=== PATIENT | female | born 1950 | race Caucasian/White ===

== ENCOUNTER 2016-11-28 18:41 | Emergency (ER) | payer MEDICARE, MEDICAID ==
[~2016-11-28] VITALS: Ht 157.5 cm; Wt 63.5 kg
[2016-11-28 18:45] VITALS: BP 128/85; PULSE 97; RESP 19; TEMP 97.2; O2SAT 97
--- NOTE | 2016-11-28 19:45 | NUR ---
Placed in room 5 . Placed on electronic device monitor, blood pressure machine and pulse oximeter. To gown for exam. Side rails up.
--- NOTE | 2016-11-28 19:50 | NUR ---
Pt presents to ED with c/o R ankle pain, stated she was hiking and slipped on rock. Pedal pulse 2+, pain 6/10, no bruise or skin opening noted. A&Ox4, denies SOB or chestpain, denies N/V/D. Will continue to monitor
--- NOTE | 2016-11-28 20:00 | NUR ---
HOSEA Rai at bedside examining pt
[2016-11-28] MEDS ORDERED: KETOROLAC TROMETHAMINE 60 MG/2 ML VIAL IM ONE (20:30)
[2016-11-28 21:10] VITALS: BP 120/76; PULSE 88; RESP 18; TEMP 97.2; O2SAT 98
--- NOTE | 2016-11-28 21:10 | NUR ---
Patient given written and verbal discharge instructions and verbalizes understanding. ER Order Takers Supervisor eri discussed with patient the results and treatment provided. Patient in stable condition. ID arm band removed. Rx of mobic given. Patient educated on pain management and to follow up with PMD. Pain Scale 0/10. Opportunity for questions provided and answered.
== END 2016-11-28 21:10 | disposition home or self-care (01) ==
LOC: SED 18:41
DX: S93.491A Sprain of other ligament of right ankle, initial encounter (principal); E11.9 Type 2 diabetes mellitus without complications; I10 Essential (primary) hypertension; X50.1XXA Overexertion from prolonged static or awkward postures, initial encounter; Y93.31 Activity, mountain climbing, rock climbing and wall climbing; Y92.832 Beach as the place of occurrence of the external cause; Y99.8 Other external cause status
CPT/HCPCS: 29515; 73630; 99284; J1885; 96372

== ENCOUNTER 2021-03-16 10:28 | Emergency (ER) | payer OTHER, MEDICAID ==
[~2021-03-16] VITALS: Ht 157.5 cm; Wt 68.0 kg
[2021-03-16 10:28] VITALS: BP_SYST 175
[2021-03-16] MEDS ORDERED: DICL100G33 TP (11:29)
[2021-03-16 11:47] VITALS: BP_SYST 175
== END 2021-03-16 11:47 | disposition home or self-care (01) ==
LOC: SED 10:28
DX: M25.511 Pain in right shoulder (principal)
CPT/HCPCS: 73030; 99283

== ENCOUNTER 2022-04-12 11:57 | Emergency (ER) | payer OTHER, MEDICAID ==
[~2022-04-12] VITALS: Ht 157.5 cm; Wt 62.1 kg
[~2022-04-12 11:57] MED LIST: DICL100G33 TP
--- NOTE | 2022-04-12 12:15 | NUR ---
Pt presents to the ER BI[facility] family. CC SOB. PT is using accessory muscles for labored breathing. Pt is aaox4, cap refill <3sec. Pt is anxious and reassured by family at bedside.
[2022-04-12 12:17] VITALS: BP_SYST 143
[2022-04-12] MEDS ORDERED: cefTRIAXone 1 GM IVPB PREMIX 50 ML IV ONE (12:30)
--- NOTE | 2022-04-12 12:32 | NUR ---
ER at bedside examining patient.
--- NOTE | 2022-04-12 12:32 | NUR ---
Patient to ER bed 8 to gown for evaluation. Side rails up. Report given to Brenda WHITEHEAD.
[2022-04-12 12:55] LABS: BASOPHILS % (AUTO) 0.6 % (0.0-2.0); EOSINOPHILS # (AUTO) 0.1 K/uL (0.0-0.4); EOSINOPHILS % (AUTO) 1.7 % (0.0-4.0); HEMATOCRIT 30.1 % (36-48); HEMOGLOBIN 10.4 g/dL (12.0-16.0); LYMPHOCYTES # (AUTO) 1.3 K/uL (1.0-5.5); LYMPHOCYTES % (AUTO) 17.3 % (20.5-51.5); MEAN CORPUSCULAR HEMOGLOBIN 28 pg (27-31); MEAN CORPUSCULAR HGB CONC 35 % (32-36); MEAN CORPUSCULAR VOLUME 81 fL (79.0-98.0); MONOCYTES # (AUTO) 0.1 K/uL (0.0-1.0); NEUTROPHILS # (AUTO) 6.1 K/uL (1.8-7.7); NEUTROPHILS % (AUTO) 79.4 % (40.0-70.0); PLATELET COUNT (AUTO) 135 K/uL (130-430); WHITE BLOOD COUNT (AUTO) 7.7 K/uL (4.8-10.8)
[2022-04-12 13:29] LABS: ANION GAP 10 (5-15); CALCIUM 8.5 mg/dL (8.4-11.0); CHLORIDE 103 mmol/L (98-107); CREATININE 1.18 mg/dL (0.55-1.30); GLUCOSE 146 mg/dL (70-99); POTASSIUM 3.3 mmol/L (3.5-5.1); SODIUM SERUM 138 mmol/L (136-145); UREA NITROGEN, BLOOD 27 mg/dL (8-21)
[2022-04-12] MEDS ORDERED: ALBUTEROL SULFATE 0.083% 2.5 MG/3 ML VIAL.NEB INH ONE ×2 (13:30→13:35)
[2022-04-12 13:48] LABS: ALANINE AMINOTRANSFERASE 24 U/L (12-78); ALBUMIN 3.4 g/dL (3.4-4.8); ASPARTATE AMINOTRANSFERASE 22 U/L (10-37); TOTAL BILIRUBIN 0.7 mg/dL (0.0-1.0)
[2022-04-12] MEDS ORDERED: cefTRIAXone 1 GM in LIDOCAINE 1%, 20 ML MDV 2.1 ML IM ONE (14:00)
--- NOTE | 2022-04-12 14:00 | NUR ---
PT Received IM administration of ABX per [facility] orders. Pt tolerates well.
[2022-04-12] MEDS ORDERED: ALBU2.5V7 INH (14:27)
--- NOTE | 2022-04-12 14:38 | NUR ---
Patient given written and verbal discharge instructions and verbalizes understanding. ER MD discussed with patient the results and treatment provided. Patient in stable condition. ID arm band removed. Opportunity for questions provided and answered. Medication side effect fact sheet provided.
[2022-04-12 19:34] VITALS: BP_SYST 143
== END 2022-04-12 14:48 | disposition home or self-care (01) ==
LOC: SED 11:57
DX: J18.1 Lobar pneumonia, unspecified organism (principal); R06.02 Shortness of breath; R07.89 Other chest pain; R05.9 Cough, unspecified; R09.81 Nasal congestion; E11.9 Type 2 diabetes mellitus without complications; I10 Essential (primary) hypertension; Z79.899 Other long term (current) drug therapy; Z20.822 Contact with and (suspected) exposure to COVID-19
CPT/HCPCS: 80053; 82550; 83880; 85025; 87040; 84484; 36415; 71045; 94640; 99284; 96372; 87426; J0696; J2001; J7613